=== PATIENT | female | born 1980 | race Caucasian/White ===

== ENCOUNTER 2019-08-20 13:40 | Emergency (ER) | payer MEDICAID, OTHER ==
[~2019-08-20] VITALS: Ht 170.2 cm; Wt 68.0 kg
[2019-08-20 13:51] VITALS: BP 114/68
[2019-08-20] MEDS ORDERED: KETOROLAC TROMETH 60MG/2ML VIAL IM ONE (15:15)
== END 2019-08-20 16:16 | disposition home or self-care (01) ==
LOC: ER 13:40
DX: S39.012A Strain of muscle, fascia and tendon of lower back, initial encounter (principal); Z88.8 Allergy status to other drugs, medicaments and biological substances; V43.52XA Car driver injured in collision with other type car in traffic accident, initial encounter; Y93.89 Activity, other specified; Y92.410 Unspecified street and highway as the place of occurrence of the external cause; Y99.8 Other external cause status
CPT/HCPCS: 72100; 96372; 99283; J1885

== ENCOUNTER 2019-09-18 13:16 | Emergency (ER) | payer MEDICAID ==
[~2019-09-18] VITALS: Ht 170.2 cm; Wt 68.0 kg
[2019-09-18 13:35] VITALS: BP 113/74
== END 2019-09-18 14:48 | disposition home or self-care (01) ==
LOC: ER 13:16
DX: U07.1 COVID-19 (principal); J06.9 Acute upper respiratory infection, unspecified; F41.9 Anxiety disorder, unspecified
CPT/HCPCS: 71045